=== PATIENT | female | born 1990 | race Caucasian/White ===

== ENCOUNTER → 2018-03-01 | Outpatient (CLI) | payer OTHER | LOC: COL.RAD 12:48 | DX: Z31.9 Encounter for procreative management, unspecified (principal) | CPT/HCPCS: Q9967 ==

== ENCOUNTER → 2019-04-02 | Outpatient (CLI) | payer OTHER | LOC: COL.LAB 10:28 | PROVIDERS: Obstetrics & Gynecology | DX: Z87.59 Personal history of other complications of pregnancy, childbirth and the puerperium (principal) ==

== ENCOUNTER → 2019-04-04 | Outpatient (CLI) | payer OTHER | LOC: ZCOL.LAB 06:36 → COL.LAB 06:36 | DX: Z87.59 Personal history of other complications of pregnancy, childbirth and the puerperium (principal) ==

== ENCOUNTER → 2019-04-11 | Outpatient (CLI) | payer OTHER ==
[2019-04-11 10:06] LABS: COLLECTION METHOD CLEAN CATCH
[2019-04-11 10:21] LABS: HEMOGLOBIN 11.8 g/dl (12.5-16.0); MEAN CELL VOLUME 86 fl (80.0-100.0); MEAN CORPUSCULAR HEMOGLOBIN 28 pg (27.0-31.0); MEAN CORPUSCULAR HGB CONC 32 g/dl (33.0-37.0); MEAN PLATELET VOLUME 10.1 fl (7.4-10.4); PLATELET COUNT 304 K/mm3 (130-400); RED BLOOD COUNT 4.25 M/mm3 (4.10-5.30); REDCELL DISTRIBUTION WIDTH-CV 14.6 % (11.5-14.5)
[2019-04-11 10:22] LABS: HEMATOCRIT 36.7 % (37.0-47.0)
[2019-04-11 10:25] LABS: PH 6 (5-8); SQUAMOUS EPITHELIAL 0-2 /hpf; URINE APPEARANCE Clear; URINE BACTERIA None Seen /hpf; URINE BILIRUBIN Negative (NEGATIVE); URINE BLOOD Negative (NEGATIVE); URINE COLOR Yellow; URINE GLUCOSE Negative (NEGATIVE); URINE KETONE Negative (NEGATIVE); URINE LEUKOCYTE ESTERASE Negative (NEGATIVE); URINE NITRATE Negative (NEGATIVE); URINE PROTEIN(semi-quant) Negative (NEGATIVE); URINE RBC 0-2 /hpf; URINE UROBILINOGEN Negative (NEGATIVE); URINE WBC 0-2 /hpf
[2019-04-11 10:34] LABS: ALBUMIN 4.6 gm/dL (3.5-5.0); BILIRUBIN,TOTAL 0.2 mg/dL (0.0-1.0); CALCIUM 9.1 mg/dL (8.4-10.2); CREATININE, serum 0.6 (0.52-1.25); POTASSIUM 4.2 mmol/L (3.4-5.0); TOTAL PROTEIN 7.6 gm/dL (6.4-8.2)
== END ==
LOC: COL.LAB 09:50
PROVIDERS: Obstetrics & Gynecology
DX: R42 Dizziness and giddiness (principal)

== ENCOUNTER 2019-04-18 10:42 | Emergency (ER) | payer OTHER ==
[~2019-04-18] VITALS: Ht 160 cm; Wt 59.1 kg
[2019-04-18 10:57] VITALS: BP 116/63; TEMP 98.2
[2019-04-18 11:18] LABS: COLLECTION METHOD CLEAN CATCH
[2019-04-18 11:20] LABS: BASO % 0.5 % (0.0-2.0); EOS # 0.2 (0.0-0.7); GRAN # 5.9 (1.4-6.5); GRAN % 67.6 % (42.2-75.2); HEMATOCRIT 33.7 % (37.0-47.0); HEMOGLOBIN 11.2 g/dl (12.5-16.0); LYMPH # 1.9 (1.2-3.4); MEAN CELL VOLUME 85 fl (80.0-100.0); MEAN CORPUSCULAR HEMOGLOBIN 28 pg (27.0-31.0); MEAN CORPUSCULAR HGB CONC 33 g/dl (33.0-37.0); MEAN PLATELET VOLUME 9.8 fl (7.4-10.4); MONO # 0.7 (0.1-0.6); MONO % 7.6 % (1.7-9.3); PLATELET COUNT 290 K/mm3 (130-400); RED BLOOD COUNT 3.97 M/mm3 (4.10-5.30); REDCELL DISTRIBUTION WIDTH-CV 14.5 % (11.5-14.5)
[2019-04-18 11:27] LABS: MUCOUS Present /lpf; PH 6 (5-8); URINE APPEARANCE Clear; URINE BACTERIA None Seen /hpf; URINE BILIRUBIN Negative (NEGATIVE); URINE BLOOD 1+ (NEGATIVE); URINE COLOR Yellow; URINE GLUCOSE Negative (NEGATIVE); URINE KETONE Negative (NEGATIVE); URINE LEUKOCYTE ESTERASE Negative (NEGATIVE); URINE NITRATE Negative (NEGATIVE); URINE PROTEIN(semi-quant) Negative (NEGATIVE); URINE UROBILINOGEN Negative (NEGATIVE)
[2019-04-18 11:31] LABS: ALBUMIN 4.3 gm/dL (3.5-5.0); BILIRUBIN,TOTAL 0.2 mg/dL (0.0-1.0); CALCIUM 8.8 mg/dL (8.4-10.2); CREATININE, serum 0.5 (0.52-1.25); POTASSIUM 3.7 mmol/L (3.4-5.0); TOTAL PROTEIN 7.2 gm/dL (6.4-8.2)
[2019-04-18 16:00] VITALS: PULSE 84
== END 2019-04-18 16:00 | disposition home or self-care (01) ==
LOC: COL.ER 10:42
PROVIDERS: Physician Assistant
DX: O26.891 Other specified pregnancy related conditions, first trimester (principal); O20.0 Threatened abortion; N83.10 Corpus luteum cyst of ovary, unspecified side; Z3A.01 Less than 8 weeks gestation of pregnancy
CPT/HCPCS: J7030

== ENCOUNTER 2019-11-30 00:09 | Outpatient (CLI) | payer OTHER ==
[~2019-11-30] VITALS: Ht 160 cm; Wt 74.5 kg
[~2019-11-30 00:09] MED LIST: COLACE 100100 MG/CAP PO; IRON 27 MG PO; PRENATAL MVI PO
--- NOTE | 2019-11-30 00:12 | NUR ---
G2L0 at 38 weeks and 5 days arrives to unit ambulatory with complaint of contractions every 3-5 minutes for the last hour. Pt reports increase in bloody show, denies large gush of fluid, reports good movement. Pt reports feeling occasional headaches that usually go away with tylenol, denies headache currently. Denies changes in vision or RUQ pain. Pt oriented to room, call light within reach, bed in low and locked position. US and toco explained and applied. Vital signs obtained. Admission assessment started. SVE 2/80/-2, membranes intact.
[2019-11-30 00:30] VITALS: BP 148/94; PULSE 71; TEMP 98.2
[2019-11-30 00:45] VITALS: BP 139/93; PULSE 65
[2019-11-30 01:00] VITALS: BP 126/85; PULSE 66
[2019-11-30 01:15] VITALS: BP 137/96; PULSE 65
--- NOTE | 2019-11-30 01:35 | NUR ---
Discharge instructions reviewed with patient, pt verbalized understanding. Return precautions reviewed. Pt seen ambulating off unit with spouse.
[2019-11-30] MEDS ORDERED: MOTRIN 800800 MG/TAB PO (22:04)
== END 2019-11-30 01:35 | disposition home or self-care (01) ==
LOC: LDRO 00:09
DX: O62.9 Abnormality of forces of labor, unspecified (principal); Z3A.38 38 weeks gestation of pregnancy

== ENCOUNTER 2019-11-30 06:37 | Inpatient (IN) | payer OTHER ==
[~2019-11-30] VITALS: Ht 160 cm; Wt 74.5 kg
[2019-11-30] VITALS (37 sets, daily range): BP systolic 122–167; BP diastolic 75–99; PULSE 63–94; TEMP 97.6–98.6
--- NOTE | 2019-11-30 06:55 | NUR ---
PATIENT TO LR 6 FOR CONTRACTIONS. PATIENT STATES SHE IS HAVING SPOTTING AND LEAKING OF FLUID. PATIENT ON EFM, CHANGED INTO GOWN, VITALS OBTAINED. ASSESMENT COMPLETE, SVE 2/85/-2. ANMISWAB NEGATIVE. LIGHT BLOODY SHOW NOTED ON EXAM GLOVE. PATIENT WAS HERE LAST NIGHT FOR CHECK AND STATES HER MEMBRANES WERE STRIPPED IN THE OFFICE ON SUNDAY. PATIENT HERE WITH HER . ICE CHIPS PROVIDED TO PATIENT
--- NOTE | 2019-11-30 08:20 | NUR ---
DR CRUZ AT PATIENTS BEDSIDE USING BEDSIDE ULTRASOUND
[2019-11-30 09:39] LABS: BASO # 0.1 (0.0-0.2); BASO % 0.4 % (0.0-2.0); EOS % 0.1 % (0-4.0); GRAN % 83.4 % (42.2-75.2); HEMATOCRIT 37.3 % (37.0-47.0); HEMOGLOBIN 12.1 g/dl (12.5-16.0); LYMPH # 1.6 (1.2-3.4); LYMPH % 9.1 % (20.0-51.0); MEAN CELL VOLUME 89 fl (80.0-100.0); MEAN CORPUSCULAR HEMOGLOBIN 29 pg (27.0-31.0); MEAN CORPUSCULAR HGB CONC 32 g/dl (33.0-37.0); MEAN PLATELET VOLUME 11.7 fl (7.4-10.4); MONO # 1.1 (0.1-0.6); MONO % 6.2 % (1.7-9.3); PLATELET COUNT 228 K/mm3 (130-400); REDCELL DISTRIBUTION WIDTH-CV 12.9 % (11.5-14.5)
[2019-11-30 09:51] LABS: ALBUMIN 3.7 gm/dL (3.5-5.0); BILIRUBIN,TOTAL 0.4 mg/dL (0.0-1.0); CALCIUM 9.1 mg/dL (8.4-10.2); CREATININE, serum 0.64 (0.52-1.25); POTASSIUM 4.1 mmol/L (3.4-5.0); TOTAL PROTEIN 7.2 gm/dL (6.4-8.2)
--- NOTE | 2019-11-30 14:19 | NUR ---
BY DR CRUZ AT 1419. TO MOTHERS CHEST IN CARE OF GAEL WYNN. FOB CUT CORD. PLACENTA SPON DELIVERED AT 1423. PITOCIN 333 MLS/ HR. FUNDAL MASSAGE PROVIDED. 2ND DEGREE REAPIRED BY DR CRUZ. ICE PACK TO PERINEUM. RECOVERY STARTED AT 1430
[2019-11-30] MEDS ORDERED: MOTRIN 800800 MG/TAB PO (22:04)
[2019-12-01 02:30] VITALS: BP 124/93; PULSE 76; TEMP 98.1
[2019-12-01 06:47] LABS: MEAN CELL VOLUME 87 fl (80.0-100.0); MEAN CORPUSCULAR HGB CONC 33 g/dl (33.0-37.0); MEAN PLATELET VOLUME 11.3 fl (7.4-10.4); PLATELET COUNT 212 K/mm3 (130-400); RED BLOOD COUNT 3.48 M/mm3 (4.10-5.30); REDCELL DISTRIBUTION WIDTH-CV 13.2 % (11.5-14.5)
[2019-12-01 06:50] LABS: HEMATOCRIT 30.3 % (37.0-47.0); HEMOGLOBIN 10.1 g/dl (12.5-16.0); MEAN CORPUSCULAR HEMOGLOBIN 29 pg (27.0-31.0)
[2019-12-01 07:00] LABS: ALBUMIN 3.1 gm/dL (3.5-5.0); BILIRUBIN,TOTAL 0.4 mg/dL (0.0-1.0); CALCIUM 8.6 mg/dL (8.4-10.2); CREATININE, serum 0.71 (0.52-1.25); POTASSIUM 4.3 mmol/L (3.4-5.0); TOTAL PROTEIN 6.3 gm/dL (6.4-8.2)
[2019-12-01 07:15] VITALS: BP 123/85; PULSE 78; TEMP 97.8
[2019-12-01 10:55] VITALS: BP 135/87; PULSE 79; TEMP 97.8
[2019-12-01 16:07] VITALS: BP 144/90; PULSE 62; TEMP 98.2
[2019-12-01 20:00] VITALS: BP 131/92; PULSE 77; TEMP 98.3
[2019-12-02] VITALS: BP 128/89; PULSE 93
[2019-12-02 07:55] VITALS: BP 134/75; PULSE 81; TEMP 98.1
== END 2019-12-02 15:00 | disposition home or self-care (01) | DRG 807 ==
LOC: LDRO 06:37 → LDR 08:19 → OB 08:19
PROVIDERS: ADMIT Obstetrics & Gynecology
PROC: 10E0XZZ Delivery of Products of Conception, External Approach (ICD-10-PCS; principal; 2019-11-30)
PROC: 0KQM0ZZ Repair Perineum Muscle, Open Approach (ICD-10-PCS; 2019-11-30)
DX: O99.824 Streptococcus B carrier state complicating childbirth (principal); Z37.0 Single live birth; O13.3 Gestational [pregnancy-induced] hypertension without significant proteinuria, third trimester; O99.62 Diseases of the digestive system complicating childbirth; K40.90 Unilateral inguinal hernia, without obstruction or gangrene, not specified as recurrent; O70.1 Second degree perineal laceration during delivery; O69.81X0 Labor and delivery complicated by cord around neck, without compression, not applicable or unspecified; Z3A.38 38 weeks gestation of pregnancy
CPT/HCPCS: J2540; J2590; J2795; J7120

== ENCOUNTER 2020-02-04 05:23 | Day surgery (SDC) | payer OTHER ==
[~2020-02-04] VITALS: Ht 160 cm; Wt 66.1 kg
[2020-02-04] VITALS (10 sets, daily range): BP systolic 99–118; BP diastolic 59–70; PULSE 63–76; TEMP 98.4–98.8
[~2020-02-04 05:23] MED LIST changes: +MOTRIN 800800 MG/TAB PO
[2020-02-04] MEDS ORDERED: PERCOCET 325 MG1 TA2 PO (08:49)
--- NOTE | 2020-02-04 09:25 | NUR ---
PATIENT TRANSPORTED TO [facility] 7 PER CART ACCOMPANIED BY PACU STAFF. MONITORS REAPPLIED. PATIENT CONTINUES ON O2 AT 2 LITERS, SAO2 AT 98%. PATIENT C/O'S OF LOWER RIGHT SIDE DISCOMFORT. RATES DISCOMFORT 5/10. PATIENT GRIMMACING. PATIENT GIVEN SPRITE TO DRINK. MOTHER IN LAW AT BEDSIDE.
--- NOTE | 2020-02-04 09:35 | NUR ---
VSS ON 2 LITERS O2. PATIENT DRINKS SPIPS OF SPRITE. DISCOMFORT STAYING AT 5/10.
--- NOTE | 2020-02-04 09:55 | NUR ---
VSS. O2 REMOVED AND PATIENT ON ROOM AIR. PATIENT STATES HAS NAUSEA. PATIENT TRIED SALTINE CRACKERS AND CONTINUES WITH SPRITE. ZOFRAN 4MG GIVEN IV SLOW PUSH.
--- NOTE | 2020-02-04 10:10 | NUR ---
VSS ON ROOM AIR. PATIENT STATES THAT NAUSEA IN STARTING TO IMPROVE BUT STILL THERE. PATIENT STATES SHE IS DROWSY. PATIENT ENCOURAGED TO TRY TO SLEEP. DECLINED PAIN MED AT THIS TIME DUE TO NAUSEA. PATIENT RELAXING TO TRY TO SLEEP.
--- NOTE | 2020-02-04 10:25 | NUR ---
VSS. O2 PLACE BACK ON PATIENT. WHEN PATIENT RESTING, SAO2 DECREASED TO 90%. AFTER O2 PLACED SAO2 INCREASED WHEN RESTING TO 96%. PATIENT RESTS WITH EYES CLOSED.
--- NOTE | 2020-02-04 10:35 | NUR ---
VSS ON 2 LITERS. PATIENT RESTING ON CART WITH EYES CLOSED AND EVEN RESPIRATIONS.
--- NOTE | 2020-02-04 11:03 | NUR ---
VSS ON ROOM AIR. PATIENT ALERT AND HAS GLASSES ON. DISCOMFORT CONTINUES. GIVEN PERCOCET PO ORDERED. PATIENT EATS APPLE SAUCE AND DRINK SPRITE.
--- NOTE | 2020-02-04 12:32 | NUR ---
VSS ON ROOM AIR. PATIENT WAS RESTING WITH EYES CLOSED. PATIENT DID WAKE AND STATED THAT DISCOMFORT WAS IMPROVING. 1140 PATIENT AMBULATED WITH STEADY GAIT TO RESTROOM. PATIENT ABLE TO VOID WITHOUT PROBLEMS.
--- NOTE | 2020-02-04 12:46 | NUR ---
VSS ON ROOM AIR. PATIENT STATES SHE IS READY TO GO HOME. IV SITE DC'D WITH CATHETER TIP INTACT. PRESSURE AND BANDAGE APPLIED. DISCHARGE INSTRUCTIONS GIVEN VERBAL AND DISCHARGE PACKET GIVEN TO PATIENT. PRESCRIPTION FOR PAIN MED IN PACKET. QUESTIONS ANSWERED AND PATIENT VOICED UNDERSTANDING. [address] CLOTHES. 1200 PATIENT DISCHARGED PER WHEEL CHAIR ACCOMPANIED BY AMB STAFF. PATIENT MOTHER IN LAW DRIVES POV.
== END 2020-02-04 12:00 | disposition home or self-care (01) ==
LOC: SDCO
PROVIDERS: Surgery
DX: K40.90 Unilateral inguinal hernia, without obstruction or gangrene, not specified as recurrent (principal); Z20.828 Contact with and (suspected) exposure to other viral communicable diseases; Z79.899 Other long term (current) drug therapy; Z80.49 Family history of malignant neoplasm of other genital organs; Z83.49 Family history of other endocrine, nutritional and metabolic diseases
CPT/HCPCS: C1781; J0690; J1170; J2250; J2405; J2704; J2795; J3010; J7120

== ENCOUNTER → 2021-06-09 | Outpatient (CLI) | payer OTHER ==
[~2021-06-09] MED LIST changes: +PERCOCET 325 MG1 TA2 PO
== END ==
LOC: MC.RAD 08:28
DX: N63.10 Unspecified lump in the right breast, unspecified quadrant (principal)